=== PATIENT | female | born 1995 | race Caucasian/White ===

== ENCOUNTER 2019-10-02 11:22 | Emergency (ER) | payer OTHER, SELFPAY ==
[2019-10-02 11:25] VITALS: BP 143/90; PULSE 120; RESP 18; TEMP 36.3; O2SAT 100
--- NOTE | 2019-10-02 11:58 | ED.GENADULT ---
HPI - General Adult General Chief complaint: Extremity Injury, Upper <FABIOLA Jimenez Last Filed: 10/02/19 12:04> Stated complaint: food stuck under fingernail <FABIOLA Jimenez Last Filed: 10/02/19 12:04> Time Seen by Provider: 10/02/19 11:28 <FABIOLA Jimenez Last Filed: 10/02/19 12:04> Source: patient <FABIOLA Jimenez Last Filed: 10/02/19 12:04> Mode of arrival: ambulatory <FABIOLA Jimenez Last Filed: 10/02/19 12:04> Limitations: no limitations <FABIOLA Jimenez Last Filed: 10/02/19 12:04> History of Present Illness HPI narrative: Patient is a 24-year-old female who presents with injury to the left thumbnail noting that she had a piece of hard [place] go underneath the nailbed and has been unable to remove it it occurred just prior to arrival. Patient notes aching pain worse with touch and palpation. Patient denies radicular symptoms or paresthesias. Patient notes her tetanus to be up-to-date patient has not had anything for pain and presents per private vehicle <FABIOLA Jimenez Last Filed: 10/02/19 12:04> Related Data Home medications: Home Medications Medication Instructions Recorded Confirmed chromium-brindal benitez [Garcinia tablet PO 10/02/19 Cambogia] <FABIOLA Jimenez Last Filed: 10/02/19 12:04> Allergies/adverse reactions: Allergies Allergy/AdvReac Type Severity Reaction Status Date / Time latex Allergy Intermediate Itching Verified 01/22/19 16:35 <FABIOLA Jimenez Last Filed: 10/02/19 12:04> Review of Systems Review of Systems: Narrative: CONSTITUTIONAL: Denies fever, chills, or sweats. ENT: Denies rhinorrhea, congestion, sore throat, or otalgia. CARDIOVASCULAR: Denies chest pain, palpitations, or edema. RESPIRATORY: Denies cough or dyspnea. SKIN: Positive for foreign body left fingernail MUSCULOSKELETAL: Denies back pain, joint pain, or myalgia. NEUROLOGIC: Denies numbnessor weakness. <Kash Hartman PA-C - Last Filed: 10/02/19 12:04> PMFSH Social History Social History: Social History Gender identity (if verbalized by the patient): Male <Kash Hartman PA-C - Last Filed: 10/02/19 12:04> Exam Narrative: Exam Narrative: GENERAL: Well-appearing, well-nourished, and in no acute distress. HEAD: Normocephalic, atraumatic. EYES: PERRLA and EOMI. ENT: Nares clear, no rhinorrhea or epistaxis. Mucous membranes moist. EXTREMITIES: Normal range of motion. No edema. SKIN: Warm, dry, no rash. Small foreign body under the left thumbnail measuring half centimeter in length by less than 1/2 cm in width NEURO: No focal deficits. Alert and oriented x3. Neurovascularly intact. Cranial nerves II through XII grossly intact PSYCH: Normal mood and affect. <Kash Hartman PA-C - Last Filed: 10/02/19 12:04> Course Course Emergency Course: Patient in the room in no distress aware of case findings treatment plan and diagnosis <Kash Hartman PA-C - Last Filed: 10/02/19 12:04> Vital Signs Vital signs: Vital Signs Temperature 97.4 F L 10/02/19 11:25 Pulse Rate 120 H 10/02/19 11:25 Respiratory Rate 18 10/02/19 11:25 Blood Pressure 143/90 H 10/02/19 11:25 Pulse Oximetry 100 10/02/19 11:25 Temperature 97.4 F L 10/02/19 11:25 Pulse Rate 120 H 10/02/19 11:25 Respiratory Rate 18 10/02/19 11:25 Blood Pressure 143/90 H 10/02/19 11:25 Pulse Oximetry 100 10/02/19 11:25 <Kash Hartman PA-C - Last Filed: 10/02/19 12:04> Vital Signs Temperature 97.4 F L 10/02/19 11:25 Pulse Rate 120 H 10/02/19 11:25 Respiratory Rate 18 10/02/19 11:25 Blood Pressure 143/90 H 10/02/19 11:25 Pulse Oximetry 100 10/02/19 11:25 Temperature 97.4 F L 10/02/19 11:25 Pulse Rate 120 H 10/02/19 11:25 Respiratory Rate 18 10/02/19 11:25 Blood Pressure 143/90 H
== END 2019-10-02 12:15 | disposition home or self-care (01) ==
PROVIDERS: Emergency Provider General Practice
DX: S60.352A Superficial foreign body of left thumb, initial encounter (principal); W45.8XXA Other foreign body or object entering through skin, initial encounter
CPT/HCPCS: 99282

== ENCOUNTER 2019-12-02 13:20 | Emergency (ER) | payer OTHER, SELFPAY ==
--- NOTE | ~2019-12-02 | XR_ITS ---
EXAMINATION: XR chest 2V DATE: 12/02/2019 13:37 INDICATION: Chest pain. TECHNIQUE: Frontal and lateral views of the chest were obtained. COMPARISON: Chest 2 views 11/05/2017 FINDINGS: The chest demonstrates clear lungs without pneumonia, pleural effusion, or pneumothorax. Th e heart size is normal. IMPRESSION: 1. No acute cardiopulmonary disease. Reviewed, dictated and finalized at location A.
--- NOTE | 2019-12-02 13:23 | ECG_ITS ---
Measurements Intervals [place] Rate: 108 P: 64 DC: 131 QRS: 71 QRSD: 81 T: 20 QT: 324 QTc: 434 Interpretive Statements SINUS TACHYCARDIA POSSIBLE LEFT ATRIAL ENLARGEMENT BORDERLINE ST-T WAVE ABNORMALITY- INFERIOR LEADS BASELINE ARTIFACT- V4-V6 ABNORMAL ECG Electronically Signed On 12-02-2019 13:32:55 CDT by Kenrick Vickers D.O.
--- NOTE | 2019-12-02 13:28 | ED.CHESTPAIN ---
HPI - Chest Pain General Chief Complaint: Chest Pain Stated Complaint: cp that radiates to shoulder blades. Time Seen by Provider: 12/02/19 13:25 Source: patient Mode of arrival: ambulatory Limitations: no limitations History of Present Illness HPI narrative: Patient is a 24-year-old female who presents for evaluation of midsternal chest pain that started suddenly today while she was cleaning. Patient states that she was cleaning her house, bent over to lift something and felt a pain on the left side of her chest with radiation into her neck. Pain is worse with movement. She does have pain if she takes a deep breath. She is feeling slightly short of breath. Patient with recent long car travel to [facility] last weekend. No leg swelling, calf tenderness or redness that she has noticed. Patient without family history of sudden cardiac , there is family history of coronary artery disease. Related Data Home Medications Medication Instructions Recorded Confirmed No Home Medications 12/02/19 12/02/19 Allergies Allergy/AdvReac Type Severity Reaction Status Date / Time latex Allergy Intermediate Itching Verified 12/02/19 14:01 Review of Systems Review of Systems: Narrative: CONSTITUTIONAL: Denies fever CARDIOVASCULAR: Reports chest pain RESPIRATORY: Denies cough, reports shortness of breath GASTROINTESTINAL: Denies current abdominal pain SKIN: Denies rash MUSCULOSKELETAL: Denies back pain NEUROLOGIC: Denies headache PMF Past Medical History Medical History (Updated 12/02/19 @ 17:59 by Lisa Rincon MD) SVT (supraventricular tachycardia) Surgical History Surgical History (Updated 12/02/19 @ 13:46 by Lisa Rincon MD) H/O cardiac radiofrequency ablation Social History Social History (Updated 12/02/19 @ 13:47 by Lisa Rincon MD) Smoking status: Current every day smoker Tobacco type: cigarettes Alcohol intake: unknown Substance use: never Gender identity (if verbalized by the patient): Female Exam Narrative: Exam Narrative: GENERAL: Awake, alert, conversant HEAD: Normocephalic, atraumatic. EYES: PERRLA and EOMI. ENT: Nares clear, no rhinorrhea or epistaxis. Mucous membranes moist. NECK: Supple. Positive left trapezius tenderness. CHEST: No respiratory distress, breathing even and non labored, tenderness to palpation over left chest wall, left pectoralis major which reproduces pain. HEART: Regular rate, sinus rhythm ABDOMEN:Non distended, non tender EXTREMITIES: Normal range of motion. No edema. No calf tenderness bilaterally. SKIN: Warm, dry, no rash. NEURO:No focal deficits. Alert and oriented x3 Course Vital Signs Vital signs: Vital Signs Temperature 36.9 C 12/02/19 13:40 Pulse Rate 114 H 12/02/19 13:40 Respiratory Rate 18 12/02/19 13:40 Blood Pressure 138/99 H 12/02/19 13:40 Pulse Oximetry 97 12/02/19 13:40 Temperature 36.9 C 12/02/19 13:40 Pulse Rate 84 12/02/19 16:00 Respiratory Rate 16 12/02/19 16:00 Blood Pressure 118/78 12/02/19 16:00 Pulse Oximetry 98 12/02/19 16:00 MDM - Chest Pain MDM Narrative Medical decision making narrative: Patient's EKG and labs are without significant high risk changes. Cardiac risk factors reviewed. Patient is felt low risk for ACS and reasonable for further risk stratification testing as an outpatient. Pain was not sudden or maximal or onset without tearing or ripping quality. Pain is reproducible on exam which makes believe this is more of a component of musculoskeletal etiology. No other signs or symptoms to suggest aortic dissection. A low risk well's criteria is noted, PE is felt to be unlikely, given recent travel did obtain a d-dimer which is negative. No pneumonia seen on evaluation today. No recurrent pain in the ER. 2 troponins are negative. Patient is felt to be a reasonable candidate for continued evaluation as an outpatient. Differential Diagnosis Differential diagnosis:
[2019-12-02 13:40] VITALS: BP 138/99; PULSE 114; RESP 18; TEMP 36.9; O2SAT 97
[2019-12-02 13:40] LABS: Basophils Percent Auto 0.3 % (0.2-1.2); Eosinophils Percent Auto 0.3 % (0-4.4); Hematocrit 43.9 % (37.0-47.0); Hemoglobin 15.2 g/dL (12.0-15.0); Immature Granulocyte Absolute 0.03 K/mm3 (0.00-0.031); Immature Granulocyte Percent A 0.3 % (0-0.5); Lymphocytes Absolute Auto 2.53 K/mm3 (0.9-3.2); Mean Corpuscular HGB Conc 34.6 g/dl (32-36); Mean Corpuscular Hemoglobin 30.9 pg (26-34); Mean Corpuscular Volume 89.2 fl (80-100); Monocytes Absolute Auto 0.4 K/mm3 (0.1-0.6); Monocytes Percent Auto 3.9 % (2.6-8.5); Neutrophils Absolute Auto 6.7 K/mm3 (1.3-6.7); Neutrophils Percent Auto 69.2 % (45.5-73.1); Platelet Count Result 169 k/mm3 (150-375); Red Blood Count 4.92 M/mm3 (4.2-5.4); Red Cell Distribution Width 12.6 % (11.5-14.5); White Blood Count 9.7 K/mm3 (4.5-10.0)
[2019-12-02 13:52] LABS: Blood Urea Nitrogen 14 mg/dL (7-17); Calcium 9.4 mg/dL (8.4-10.2); Carbon Dioxide 26 mmol/L (22-30); Chloride 105 mmol/L (98-107); Estimated CRCL calculation 125 ml/min; Estimated Glomerular Filt Rate > 60; Glucose 91 mg/dL (65-105); Sodium 139 mmol/L (137-145)
[2019-12-02 13:53] LABS: Prothrombin Time 12.8 Seconds (11.1-14.7)
[2019-12-02 13:54] LABS: Partial Thromboplastin Time 26.7 SECONDS (22.3-36.8)
[2019-12-02 14:04] LABS: Troponin I < 0.012 ng/mL (0.000-0.034)
[2019-12-02] MEDS: ASPIRIN 81 MG CHEWABLE TABLET 324 MG PO (14:09)
[2019-12-02 14:21] LABS: Alanine Aminotransferase 30 U/L (4-35); Albumin Level 4.9 g/dL (3.5-5.1); Alkaline Phosphatase 76 U/L (38-126); Aspartate Amino Transferase 30 U/L (14-36); Bilirubin,Total 0.4 mg/dL (0.2-1.3); Blood Urea Nitrogen 14 mg/dL (7-17); Calcium 9.5 mg/dL (8.4-10.2); Carbon Dioxide 25 mmol/L (22-30); Chloride 104 mmol/L (98-107); D Dimer < 0.22 ug/mL (<0.48); Estimated CRCL calculation 125 ml/min; Estimated Glomerular Filt Rate > 60; Glucose 92 mg/dL (65-105); Lipase 51 U/L (23-300); Sodium 138 mmol/L (137-145)
[2019-12-02 14:30] VITALS: BP 110/60; PULSE 88; RESP 20; O2SAT 97
[2019-12-02 15:00] VITALS: BP 117/67; PULSE 76; PULSE 77; RESP 16; O2SAT 98
[2019-12-02 16:00] VITALS: BP 118/78; PULSE 84; RESP 16; O2SAT 98
[2019-12-02 17:15] LABS: Troponin I < 0.012 ng/mL (0.000-0.034)
== END 2019-12-02 18:10 | disposition home or self-care (01) ==
PROVIDERS: Emergency Provider Emergency Medicine
DX: R07.89 Other chest pain (principal); F17.210 Nicotine dependence, cigarettes, uncomplicated
CPT/HCPCS: 36415; 71046; 80048; 80053; 83690; 84484; 85025; 85380; 85610; 85730; 93005; 99284; A9270

== ENCOUNTER 2020-09-23 14:28 | Outpatient (CLI) | payer OTHER, SELFPAY ==
--- NOTE | ~2020-09-23 | US_ITS ---
EXAMINATION: US pelvic complete w TV DATE: 09/23/2020 15:10 INDICATION: Pelvic pain. TECHNIQUE: Multiple transabdominal and transvaginal sonographic images of the pelvis were obtained. COMPARISON: None. FINDINGS: TRANSABDOMINAL ULTRASOUND: The uterus measures 8.8 x 3.3 x 4.9 cm. There is no free fluid in the pelvis. TRANSVAGINAL ULTRASOUND: The endometrial complex measures 5 mm in thickness. The right ovary measures 1.8 x 2.8 x 1.8 cm. The left ovary measures 1.1 x 1.5 x 1.2 cm. There is normal vascular flow in the ovaries. There are enlar ged left adnexal veins. IMPRESSION: 1. Enlarged left adnexal veins, consistent with pelvic venous insufficiency. Reviewed, dictated and finalized at location B.
== END 2020-09-23 14:29 | disposition home or self-care (01) ==
PROVIDERS: Visit Provider Obstetrics & Gynecology
DX: R10.2 Pelvic and perineal pain (principal); R93.5 Abnormal findings on diagnostic imaging of other abdominal regions, including retroperitoneum
CPT/HCPCS: 76830; 76856

== ENCOUNTER → 2020-10-15 02:49 | Outpatient (CLI) | payer OTHER, SELFPAY ==
[2020-10-15 18:15] LABS: SARS-CoV-2 RNA PCR Negative
== END ==
PROVIDERS: Visit Provider Obstetrics & Gynecology
DX: Z01.812 Encounter for preprocedural laboratory examination (principal); Z20.822 Contact with and (suspected) exposure to COVID-19
CPT/HCPCS: 36415; 86850; 86900; 86901; C9803; U0003; U0005

== ENCOUNTER 2020-10-15 09:23 | Outpatient (CLI) | payer OTHER, SELFPAY | END 2020-10-15 09:24 | disposition home or self-care (01) | LOC: ANHSURGERY 09:27 | PROVIDERS: Visit Provider Obstetrics & Gynecology | DX: R10.2 Pelvic and perineal pain (principal); Z01.818 Encounter for other preprocedural examination | CPT/HCPCS: 36415; 86850; 86900; 86901 ==

== ENCOUNTER 2020-10-18 00:50 | Day surgery (SDC) | payer OTHER, SELFPAY ==
[2020-10-05 15:34] VITALS: BMI 29.2
[2020-10-18] VITALS (10 sets, daily range): BP systolic 86–122; BP diastolic 54–84; PULSE 68–88; RESP 10–20; TEMP 36.2–36.5; O2SAT 96–100
--- NOTE | 2020-10-18 06:49 | PM.IMHP ---
H&P: HPI History of Present Illness Date/Time: 10/18/20 06:49 25-year-old 2 para 2 admitted for diagnostic laparoscopy. She has pain discomfort and dyspareunia. She underwent an ultrasound which was negative. She had negative STD testing. As her pain continues to be unrelieved by routine methods she is admitted for laparoscopy. Risks and benefits reviewed in full Chief Complaint: Pelvic pain Review of Systems Review of Systems: All systems reviewed & are unremarkable except as noted in HPI and below PMFSH Past Medical History Medical History SVT (supraventricular tachycardia) Surgical History Surgical History H/O cardiac radiofrequency ablation Social History Social History Smoking packs per day: 1 Smoking cigarettes per day: 20.0 Years smoked: 12 Smoking pack-years: 12.00 Smoking status: Current every day smoker Tobacco type: cigarettes Second hand tobacco smoke exposure: Yes Additional smoking assessment comments: smokes 0.5-1 pack per day Alcohol intake: current Alcohol use details: very rarely; 1 drink every 6 months maybe Substance use: never Living arrangements: with family Gender identity (if verbalized by the patient): Female Spiritual care concerns: No Meds Home Medications and Allergies Home Medications Medication Instructions Recorded Confirmed Type aspirin 81 mg PO DAILY 10/05/20 10/05/20 History Allergies Allergy/AdvReac Type Severity Reaction Status Date / Time latex Allergy Intermediate Itching Verified 10/05/20 15:31 Exam Const: General: no acute distress Eyes: General: appearance normal, both eyes and all related structures Neck: Neck: supple and no JVD Thyroid: thyroid normal Resp: Effort & Inspection: normal respiratory effort Auscultation: clear to auscultation bilaterally Cardio: Rate: regular rate Rhythm: regular rhythm GI: Inspection: non-distended GI Palp: Yes Soft to palpation, No Tenderness to palpation present (GI) and No Guarding due to palpation present (GI) Auscultation: normal bowel sounds : Speculum Exam - Vagina: normal appearance of the vagina Speculum Exam - Cervix: normal appearance of the cervix Bimanual exam- vagina & uterus: Cervical tenderness present, cervical motion tenderness and Uterine tenderness Bimanual Exam- Adnexa, other: tender Skin: General skin exam: no rashes or lesions noted Extrem: General: normal to inspection and no edema Psych: Mental Status: mental status grossly normal Affect: normal affect Assessment and Plan Additional Plan Impression: Pelvic pain Plan: Diagnostic laparoscopy
--- NOTE | 2020-10-18 06:51 | WPDHPUPDATE1 ---
History and Physical Update Update Date/Time: 10/18/20 06:51 History and Physical has been reviewed, including an updated exam of the patient. There are NO changes in the patient's condition. Risks, benefits, and alternatives have been discussed and questions answered. Patient agrees to proceed with procedure.
[2020-10-18] MEDS: ACETAMINOPHEN 500 MG TABLET 1000 MG PO (07:02)
[2020-10-18] MEDS: LACTATED RINGERS 1,000 ML 30 ML IV CONT ×2 (07:08→09:09)
[2020-10-18] MEDS: KETOROLAC 15 MG/ML VIAL (*BKC) IV PUSH (07:38)
--- NOTE | 2020-10-18 08:02 | WPDANESEPPF ---
Anes - Initial Pre Proc Eval Procedure: Operation Date: 10/18/20 08:30 Proposed Procedures p Diagnostic Laparoscopy - Norman Corona MD Date/Time: 10/18/20 08:02 Surgeon: Norman Corona MD Pre Op Diagnosis: Pelvic Pain Patient Data Age: 25 Gender: F Height: 5 ft 5 in Weight: 80.02 kg Last Vital Signs Temp 97.2 F L 10/18/20 07:11 Pulse 88 10/18/20 07:11 BP 105/63 10/18/20 07:11 Pulse Ox 99 10/18/20 07:11 Allergies Allergy/AdvReac Type Severity Reaction Status Date / Time latex Allergy Intermediate Itching Verified 10/18/20 06:56 Home Medications Medication Instructions Recorded Confirmed Type aspirin 81 mg PO DAILY 10/05/20 10/18/20 History hydrocodone-acetaminophen 1 tablet PO Q4H PRN #30 tablet 10/18/20 Rx Patient hx anesthesia problems: none Family hx anesthesia problems: none PMFSH Past Medical History Medical History SVT (supraventricular tachycardia) Surgical History Surgical History H/O cardiac radiofrequency ablation Social History Social History Smoking packs per day: 1 Smoking cigarettes per day: 20.0 Years smoked: 12 Smoking pack-years: 12.00 Smoking status: Current every day smoker Tobacco type: cigarettes Second hand tobacco smoke exposure: Yes Additional smoking assessment comments: smokes 0.5-1 pack per day Alcohol intake: current Alcohol use details: very rarely; 1 drink every 6 months maybe Substance use: never Living arrangements: with family Gender identity (if verbalized by the patient): Female Spiritual care concerns: No Anes - Eval Final PreProcedure Day of Procedure 10/18/20 08:02 Patient weight: overweight Heart: regular rate and rhythm Lungs: clear to auscultation Airway: Mallampati scale class II Neurological: alert and oriented Last oral intake: >/= 8 hours ASA classification: III Emergent: no Anesthetic plan: proceed Anesthesia type and monitoring: general ETT and standard monitoring Informed Consent: The patient's anesthetic plan and its attendant risks and benefits were discussed with the patient/family/POA. Questions were solicited and answers provided to the satisfaction of the patient/family/POA.
--- NOTE | 2020-10-18 09:04 | W.PM.PROC2 ---
Procedure Note - Detailed Date of Procedure 10/18/20 Pre-op Diagnosis Pelvic Pain Post-op Diagnosis same Procedure Performed Laparoscopic destruction of right ovarian cyst. Destruction of endometriosis Surgeon Norman Corona MD Anesthesia GETA Indications Patient was admitted for laparoscopy secondary to pelvic pain and dyspareunia. Findings Right ovarian cyst was seen. Blistered endometrial implants along the right and left uterosacral ligament. Approximately 50cc of serosanguineous fluid in the cul-de-sac. Description of Procedure The patient was prepped draped in the normal sterile fashion placed in the dorsal lithotomy position. Under excellent general endotracheal anesthesia weighted speculum was placed in posterior fornix vagina. Anterior lip of the cervix grasped with a single-tooth tenaculum and a Reeves's cannula inserted and attached to the single-tooth. This was to be used later as uterine manipulation. Bladder was emptied of clear urine. The weighted speculum was removed. Gloves were changed. An infraumbilical incision was made the Veress needle passed in the abdomen. The abdomen was filled with CO2 gas [id number]. The 5mm trocar was advanced under direct visualization assuring no injury. The patient placed in Trendelenburg and a suprapubic incision made. 5mm trocar advanced under direct visualization assuring no injury. The above findings were seen. The 50cc of serosanguineous fluid was suction and removed. Areas of endometriosis were seen along the right left uterosacral ligament form of powder burn and blisters. These were point cauterized at 35 w per 2nd with monopolar cautery. Irrigation was undertaken until clear. Moderate to large size right ovarian cyst was noted and this was opened in linear fashion and drained of clear fluid. Gallbladder and liver edge appeared within normal limits. No other abnormalities were seen. The lower sites removed. The gas removed from the abdomen. The upper site removed incisions closed with 4 Monocryl and glue. The instruments removed from the vagina. The patient was awakened. All sponge, needle, instrument counts were correct. There were no immediate complications noted
[2020-10-18] MEDS: fentaNYL CITRATE INJ (*CRX) 100 MCG/2 ML VIAL 25 MCG IV PUSH ×5 (09:51→10:27)
[2020-10-18] MEDS: oxyCODONE HCL (*CRX) 5 MG TAB IR PO (10:52)
== END 2020-10-18 11:47 | disposition home or self-care (01) ==
PROVIDERS: Visit Provider Obstetrics & Gynecology
PROC: (CPT 49320; principal; 2020-10-18 08:30)
DX: N83.201 Unspecified ovarian cyst, right side (principal); N80.3 Endometriosis of pelvic peritoneum; R10.2 Pelvic and perineal pain; Z79.82 Long term (current) use of aspirin; I47.1 Supraventricular tachycardia; N94.10 Unspecified dyspareunia; F17.210 Nicotine dependence, cigarettes, uncomplicated
CPT/HCPCS: 58662; A9270; J0330; J1100; J1885; J2250; J2405; J2704; J3010; J7120